=== PATIENT | female | born 1995 | race Caucasian/White ===

== ENCOUNTER → 2024-09-25 16:48 | Outpatient (REF) | payer OTHER, SELFPAY ==
[2024-09-25 17:33] LABS: C-Reactive Protein < 5.00 mg/L (0.0-10.00)
[2024-09-25 17:37] LABS: Erythrocyte Sed Rate 2 mm/hour (0-20)
== END ==
LOC: REG 16:48
PROVIDERS: ATTENDING PHYSICIAN Physician Assistant
DX: R51.9 Headache, unspecified (principal)
CPT/HCPCS: 36415; 85652; 86140